=== PATIENT | male | born 1980 | race Hispanic/Latino ===

== ENCOUNTER 2018-08-16 09:38 | Outpatient (CLI) | payer BC ==
--- NOTE | 2018-08-16 11:03 | ULT ---
FOCUSED ULTRASOUND NECK: Date: 08/16/18 COMPARISON: None. HISTORY: Swelling. TECHNIQUE: Multiplanar Harvey scale sonographic imaging of the neck in the area of palpable concern obtained. On the right, there are two normal appearing lymph nodes, measuring 3.0 mm and 5.0 mm in short axis d imension, respectively. A few nonenlarged nodes are seen on the left as well. There is a solid isoechoic lesion within internal vascularity within the left lobe of the thyroid gla nd measuring 1.2 x 1.0 cm. IMPRESSION: 1. Subcentimeter lymph nodes noted within the neck. If this does not explain the swelling, CT examination of the neck is advised. 2. Incidentally noted solid vascular lesion within the left lobe of the thyroid gland. Dedicated thy roid ultrasound is advised. POS: [id number]
== END 2018-08-16 09:39 | disposition home or self-care (01) ==
LOC: RAD 09:38
PROVIDERS: ATTEND Family Medicine
DX: R22.1 Localized swelling, mass and lump, neck (principal)
CPT/HCPCS: 76536

== ENCOUNTER 2020-02-13 08:29 | Emergency (ER) | payer BC, OTHER ==
--- NOTE | 2020-02-13 09:29 | RAD ---
Chest AP view INDICATION: Difficulty breathing COMPARISON: None FINDINGS: Lungs: There are peripheral interstitial and airspace opacities throughout both lungs which can be s een with an atypical infectious process. Recommend consideration for Covid testing. Cardiac silhouette: The cardiomediastinal silhouette appears within normal limits. Pulmonary vasculature: Normal Pleural spaces: No pleural effusion or pneumothorax is demonstrated. Upper abdomen: No abnormality seen. Osseous structures: No acute osseous abnormality. Additional findings: None. IMPRESSION: Bilateral peripheral interstitial and airspace opacities within both lungs can be seen with atypical infectious processes such as viral pneumonia. Recommend consideration for Covid testing. Radiographic follow-up to resolution is recommended.
[2020-02-13 09:38] LABS: #Eosinphils 0.1 thou/uL (0.0-0.7); #Lymphocytes 1.4 thou/uL (1.20-3.40); #Monocytes 0.6 thou/uL (0.11-0.59); #Neutrophils 4.7 thou/uL (1.40-6.50); %Basophils 0.3 % (0.0-1.0); %Lymphocytes 20.3 % (21.0-51.0); %Monocytes 8.5 % (0.0-10.0); %Neutrophils 69.8 % (42.0-75.0); Hemoglobin 13.2 g/dL (14.0-18.0); Mean Corpuscular HGB CONC 34.1 g/dL (32.0-36.0); Mean Corpuscular Hemoglobin 29.7 pg (27.0-31.0); Platelet Count 352 thou/uL (130-400); RBC Distribution Width 11.4 % (11.5-14.5); Red Blood Cell (RBC) Count 4.46 mill/uL (4.70-6.10); White Blood Cell (WBC) Count 6.8 thou/uL (4.8-10.8)
[2020-02-13] MEDS ORDERED: Labetalol HCl 100 MG/20 ML VIAL ONE (09:46)
[2020-02-13] MEDS ORDERED: Aspirin Chewable 81 MG TAB ONE (09:46)
[2020-02-13 09:59] LABS: ALT (SGPT) 196 U/L (8-55); AST (SGOT) 109 U/L (5-34); Albumin 3.8 g/dL (3.5-5.0); Alkaline Phosphatase 140 U/L (40-110); Anion Gap 13 mmol/L (10-20); BUN (Urea Nitrogen) 10 mg/dL (8.9-20.6); Bilirubin, Total 0.3 mg/dL (0.2-1.2); Calc. Creatinine Clearance 0 mL/min (70-130); Calcium 8.2 mg/dL (7.8-10.44); Carbon Dioxide 26 mmol/L (22-29); Chloride 102 mmol/L (98-107); Estimated GFR-MDRD Greater than 90; Globulin 2.9 g/dL (2.4-3.5); Glucose 195 mg/dL (70-105); Lipase 59 U/L (8-78); Protein, Total 6.7 g/dL (6.0-8.3); Sodium 137 mmol/L (136-145)
[2020-02-14 13:59] LABS: SARS-CoV-2 MS2 Positive; SARS-CoV-2 N Gene Positive; SARS-CoV-2 S Gene Positive; SARS-CoV-2 orf1ab Positive
== END 2020-02-13 11:28 | disposition home or self-care (01) ==
LOC: ERS 08:29
DX: U07.1 COVID-19 (principal)
CPT/HCPCS: 36415; 71045; 80053; 83690; 83880; 84484; 85025; 87635; 93005; 96374; U0003